=== PATIENT | female | born 1950 | race Caucasian/White ===

== ENCOUNTER 2017-08-27 06:30 | Day surgery (SDC) | payer MEDICARE ==
[~2017-08-27] VITALS: Ht 162.6 cm; Wt 64.4 kg
[~2017-08-27 06:30] MED LIST: AMLODIPINE BESYL5 MG PO; COQ10200 MG PO; METOPROLOL SUCC50 MG PO; OSCAL 500/1 TAB PO; OSTEO BI-FLE PO; PRAVASTATIN SOD20 MG PO; TRIAMCINOLON0.11 EX; ZESTRIL10 M1 PO; ZOLPIDEM5 M1 PO
[2017-08-27 13:10] VITALS: BP 171/88
== END 2017-08-27 09:20 | disposition home or self-care (01) ==
LOC: ENDO 06:30
PROVIDERS: ATTEND Surgery
PROC: 0DJD8ZZ Inspection of Lower Intestinal Tract, Via Natural or Artificial Opening Endoscopic (ICD-10-PCS; principal; 2017-08-27)
DX: Z12.11 Encounter for screening for malignant neoplasm of colon (principal); I10 Essential (primary) hypertension; E78.5 Hyperlipidemia, unspecified

== ENCOUNTER 2020-06-22 15:21 | Emergency (ER) | payer MEDICARE ==
[~2020-06-22] VITALS: Ht 162.6 cm; Wt 68.0 kg
[2020-06-22 17:40] LABS: HEMATOCRIT 39.5 % (37.0-47.0); HEMOGLOBIN 12.7 g/dl (12.0-16.0); IMMATURE GRANULOCYTES 0.1 % (0.0-5.0); MEAN CELL VOLUME 92.7 fL CALC (80.0-100.0); MEAN CORPUSCULAR HGB 29.8 pG CALC (26.0-32.0); MEAN CORPUSCULAR HGB CONC 32.2 g/dL CAL (32.0-36.0); NEUT# 5.98 thou/uL (2.00-7.15); RED BLOOD COUNT 4.26 mill/uL (4.20-5.60); RED CELL DISTRI WIDTH 12.5 % (11.5-15.5)
[2020-06-22 17:58] LABS: ALBUMIN 4.1 g/dL (3.2-5.0); ALKALINE PHOSPHATASE 133 u/l (38-126); ANION GAP 11 (6-22 (CALC)); BUN 14 mg/dL (8-23); BUN/CREATININE RATIO 21 (12-20 (CALC)); CARBON DIOXIDE 28 mmol/l (22-30); CHLORIDE 105 mmol/l (95-108); CREATININE 0.7 mg/dL (0.5-1.0); GFR > 60 ML/MIN (>=60 (CALC)); GFR FOR AFR.AMER. > 60 ML/MIN (>=60 (CALC)); LIPASE 55 u/l (23-300); POTASSIUM 3.7 mmol/l (3.5-5.1); SGOT/AST 28 u/l (9-36); SODIUM 139 mmol/l (137-146); TOTAL PROTEIN 7.5 g/dL (6.3-8.2)
[2020-06-22 18:03] LABS: BILIRUBIN, TOTAL 0.4 mg/dL (0.0-1.4)
[2020-06-22 21:18] VITALS: BP 154/68
[2020-06-25] MEDS ORDERED: ASPIRIN ENTERIC81 MG PO (11:01)
[2020-06-25] MEDS ORDERED: LORATADINE10 M4 PO (11:02)
[2020-06-27] MEDS ORDERED: AMLODIPINE BESYL5 MG PO (07:47)
== END 2020-06-22 21:20 | disposition home or self-care (01) ==
LOC: ED 15:21
PROVIDERS: Family Medicine
DX: I10 Essential (primary) hypertension (principal); R50.9 Fever, unspecified; E78.5 Hyperlipidemia, unspecified; Z20.822 Contact with and (suspected) exposure to COVID-19